=== PATIENT | male | born 1975 | race African-American/Black ===

== ENCOUNTER 2017-03-10 13:25 | Emergency (ER) | payer OTHER ==
[2017-03-10 13:33] VITALS: BMI 30.7
--- NOTE | 2017-03-10 13:54 | PDOC ---
History of Present Illness - General Chief Complaint: Redness To Affected Area Stated Complaint: CELLULITIS/ RT HAND Time Seen by Provider: 03/10/17 13:36 History Source: Patient, Old Records Exam Limitations: Clinical Condition - History of Present Illness Initial Comments: 03/10/17 14:01 This is a 41-year-old man with past medical history of schizophrenia, NIDDM hypertension, hyperlipidemia, cellulitis and monoparesis of right upper extremity who was brought to the emergency department by the psychiatric facility for swelling and paralysis of right upper extremity. Patient states his arm is not changed and is been like this since approximately August 2016. 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 Patient states she was admitted to [facility] for cellulitis of his right upper extremity status post fall in August 2016. He denies any fevers, chills, headaches , dizziness, chest pain, shortness of breath, abdominal pain, pain in extremities. Past History - Past Medical History Allergies/Adverse Reactions: Allergies Allergy/AdvReac Type Severity Reaction Status Date / Time No Known Allergies Allergy Verified 03/10/17 13:27 COPD: No Diabetes: Yes Psychiatric Problems: Yes (DEPRESSION) Other medical history: RT ARM PARALYSIS DUE TO A FALL ACCIDENT - Suicide/Smoking/Psychosocial Hx Smoking History: Current every day smoker Have you smoked in the past 12 months: Yes Number of Cigarettes Smoked Daily: 20 Information on smoking cessation initiated: Yes 'Breaking Loose' booklet given: 03/10/17 Hx Alcohol Use: No Drug/Substance Use Hx: Yes (RAHEEM) Substance Use Type: None Review of Systems - Review of Systems Able to Perform ROS?: Yes Is the patient limited Chinese proficient: No Constitutional: No: Symptoms Reported HEENTM: No: Symptoms Reported Respiratory: No: Symptoms reported Cardiac (ROS): No: Symptoms Reported ABD/GI: No: Symptoms Reported : No: Symptoms Reported Musculoskeletal: Yes: See HPI Integumentary: No: Symptoms Reported Neurological: No: Symptoms reported Endocrine: No: Symptoms Reported Hematologic/Lymphatic: No: Symptoms Reported *Physical Exam - Vital Signs Last Vital Signs Temp Pulse Resp BP Pulse Ox 98.3 F 88 18 136/83 100 03/10/17 13:27 03/10/17 13:27 03/10/17 13:27 03/10/17 13:27 03/10/17 13:27 - Physical Exam General Appearance: Yes: Appropriately Dressed, Disheveled HEENT: positive: Normal ENT Inspection Neck: positive: Trachea midline, Supple Respiratory/Chest: positive: Lungs Clear, Normal Breath Sounds. negative: Chest Tender, Respiratory Distress, Accessory Muscle Use Cardiovascular: positive: Regular Rhythm, Regular Rate, Edema (right upper extremity from elbow extending into fingers) Gastrointestinal/Abdominal: positive: Normal Bowel Sounds, Soft. negative: Tender Musculoskeletal: positive: Normal Inspection. negative: CVA Tenderness Extremity: positive: Normal Capillary Refill, Normal Inspection, Coldness ( right upper extremity from elbow distally.). 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 unable to flex or extend right elbow or wrist. Left side testing is WNL.) Integumentary: positive: Normal Color, Dry, Warm Neurologic: positive: Fully Oriented, Alert, Normal Mood/Affect, Normal Response Medical Decision Making - Medical Decision Making 03/10/17 14:01 A/P: This is a 41-year-old man with past medical history of schizophrenia, NIDDM hypertension, hyperlipidemia, cellulitis and monoparesis of right upper extremity who was brought to the emergency department by the psychiatric facility for swelling and paralysis of right upper extremity. Patient states his arm is not changed and is been like this since approximately August 2016. 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 Patient states she was admitted to [facility] for cellulitis of his right upper extremity status post fall in August 2016. He denies any fevers, chills, headaches , dizziness, chest pain, shortness of breath, abdominal pain, pain in extremities. +3 edema noted to right upper extremity from the elbow extending down to fingers. Patient unable to flex or extend elbow, wrist, fingers. Patient with sensation to medial and lateral aspects of the right upper extremities. Patient states he is decreased sensation when compared to the left side. +2 radial and ulnar pulses. Right upper extremity cold to touch. Differential diagnosis includes DVT versus chronic swelling and monoparesis. I will obtain duplex Dopplers and xray of elbow/forearm/wrist of the right upper extremity. [facility] now. 03/10/17 15:27 Duplex Doppler is read by Dr. Sellers: No evidence of deep vein thrombosis in the right upper extremity. 03/10/17 15:59 X-rays as read by me: No fractures, subluxations or dislocations noted. I'll discharge the patient back to his facility. Both the patient and employee from his facility are aware of the plan and will keep all previously scheduled appointments. strict return precautions given. *DC/Admit/Observation/Transfer Diagnosis at time of Disposition: Swelling of right upper extremity - Discharge Dispostion Disposition: HOME Condition at time of disposition: Stable Admit: No - Referrals - Patient Instructions Additional Instructions: This is a chronic condition. Keep diaphoresis scheduled appointments for continued workup and care for this chronic condition. Continue to take all previously scheduled medications. Return to emergency department for redness, warmth, worsening swelling, pain, or any other concerns. - Post Discharge Activity
[2017-03-10 16:21] VITALS: BP 120/80; PULSE 86; TEMP 98.1
== END 2017-03-10 16:15 | disposition home or self-care (01) ==
LOC: JER 13:25
DX: R22.31 Localized swelling, mass and lump, right upper limb (principal); G83.31 Monoplegia, unspecified affecting right dominant side; I10 Essential (primary) hypertension; E11.9 Type 2 diabetes mellitus without complications; Z79.84 Long term (current) use of oral hypoglycemic drugs; E78.00 Pure hypercholesterolemia, unspecified; F20.9 Schizophrenia, unspecified
CPT/HCPCS: 73070-TC-RT; 73090-TC-RT; 73110-TC-RT; 73130-TC-RT; 82962; 93971; 99282-25